=== PATIENT | female | born 1945 | race Caucasian/White ===

== ENCOUNTER 2020-11-17 16:16 | Observation (INO) ==
[2020-11-17] MEDS ORDERED: METOCLOPRAMIDE HCL 5 MG/ML VIAL IV ONE (16:49)
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
[2020-11-17] MEDS ORDERED: MORPHINE SULFATE 2 MG/ML DISP.SYRIN IV ONE (17:06)
[2020-11-17 19:41] LABS: Hematocrit 39.1 % (37.0-47.0); Hemoglobin 12.5 gm/dL (12.5-16.0); Mean Cell Volume 97.8 fl (78-100); Mean Corpuscular Hemoglobin 31.3 pg (27-31); Mean Platelet Volume 9.4 fl (8-12.5); Neutrophil # 11.2 K/mm3 (1.3-6.0); Neutrophil % 81.9 % (42-75.0); Platelet Count 186 K/mm3 (150-450); Red Cell Distribution Width 12.2 % (11.5-14.0); White Blood Count 13.7 K/mm3 (4.0-10.5)
[2020-11-17 19:55] LABS: Albumin * 3.5 gm/dl (3.4-5.0); Anion Gap 11.2 mmol/L (6.8-13.8); BUN/Creatinine Ratio 11.2 (9.0-21.6); Bilirubin, Total 0.9 mg/dL (0.0-1.1); Ca. Corrected For Albumin 8.9 mg/dL (8.4-10.2); Calcium * 8.8 mg/dL (7.9-10.9); Carbon Dioxide 29.1 mmol/L (24-32.6); Potassium 4.3 mmol/L (3.4-4.6); Total Protein 7.1 gm/dL (6.2-8.2)
[2020-11-17] MEDS ORDERED: MORPHINE SULFATE 2 MG/ML DISP.SYRIN ONE (20:02)
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
[2020-11-17] MEDS ORDERED: busPIRone HCL 5 MG TABLET PO SCH (21:30)
[2020-11-17] MEDS: busPIRone HCL 5 MG TABLET PO SCH (23:25)
[2020-11-18] MEDS: oxyCODONE HCL 5 MG TABLET PO PRN ×4 (02:19→21:22)
[2020-11-18] MEDS ORDERED: LEVOTHYROXINE SODIUM 50 MCG TABLET PO SCH ×2 (07:00→21:00)
[2020-11-18 07:44] LABS: Anion Gap 8.8 mmol/L (6.8-13.8); BUN/Creatinine Ratio 10.3 (9.0-21.6); Calcium * 8.4 mg/dL (7.9-10.9); Carbon Dioxide 30.3 mmol/L (24-32.6); Estimated Creat Clear 42.4; Potassium 4.1 mmol/L (3.4-4.6)
[2020-11-18] MEDS: busPIRone HCL 5 MG TABLET PO SCH ×2 (07:59→21:23)
[2020-11-18] MEDS: PANTOPRAZOLE SODIUM 20 MG TABLET.DR PO SCH (07:59)
[2020-11-18] MEDS: NADOLOL 40 MG TABLET PO SCH (07:59)
[2020-11-18] MEDS ORDERED: CITALOPRAM HYDROBROMIDE 20 MG TABLET PO SCH ×2 (09:00→21:00)
[2020-11-18] MEDS ORDERED: busPIRone HCL 5 MG TABLET PO SCH (09:00)
[2020-11-18] MEDS ORDERED: ROSUVASTATIN CALCIUM 10 MG TABLET PO SCH ×3 (09:00→21:00)
[2020-11-18] MEDS ORDERED: ONDANSETRON 4 MG TAB.RAPDIS PO PRN (10:30)
[2020-11-18] MEDS ORDERED: ONDANSETRON 4 MG TAB.RAPDIS ONE (10:33)
--- NOTE | 2020-11-18 13:00 | PN ---
Subjective - Date and Time Seen Date: 11/18/20 Time: 12:59 Subjective Narrative: Pain is well controlled, patient currently sitting in the chair. Still some nausea but better with Zofran. No acute events overnight. She feels well. Working with PT. Objective - Review of Systems Generalized/Overall Review: Reports: No Symptoms Reported EENTM: Reports: No Symptoms Reported Respiratory: Reports: No Symptoms Reported Cardiac: Reports: No Symptoms Reported Abdominal: Reports: No Symptoms Reported Genitourinary Symptoms: Reports: No Symptoms Reported Musculoskeletal Complaints: Reports: Other - hip pain Skin: Reports: No Symptoms Reported Endocrine: Reports: No Symptoms Reported - Vitals Vitals: Last Vital Signs Temp 36.6 C 11/18/20 10:01 Pulse 70 11/18/20 10:01 Resp 18 11/18/20 10:01 BP 106/58 11/18/20 10:01 Pulse Ox 94 11/18/20 10:01 - Abnormal Lab Findings Abnormal Lab Findings: Abnormal Lab Results 11/17/20 11/17/20 11/18/20 Range/Units 19:30 19:30 07:10 WBC 13.7 H (4.0-10.5) K/mm3 RBC 4.00 L (4.2-5.4) M/mm3 MCH 31.3 H (27-31) pg Immature Gran % (Auto) 0.50 H (0.001-0.429) % Immature Gran # (Auto) 0.07 H (0.000-0.0310) K/mm3 Neutrophils % 81.9 H (42-75.0) % Lymphocytes % 12.2 L (20-51) % Neutrophils # 11.2 H (1.3-6.0) K/mm3 Est GFR (Non-Af Amer) 53 L 48 L (60-130) mL/min Random Glucose 133 H (70-110) mg/dL - Exam Constitutional: Present: Alert, Oriented x3, Cooperative, Elderly Respiratory: Present: lungs clear, normal breath sounds Cardiovascular/Chest: Present: regular rate, rhythm, systolic murmur - 2/6 Abdomen: Present: soft, nontender, nondistended Extremity: Present: other - pelvic pain Skin Exam: Present: normal color, warm/dry Appearance: Present: appropriate appearance, appropriate insight Eye contact: Present: cooperative, good eye contact Thoughts: Present: normal thought pattern, normal mood /affect Assessment/Plan Plan Narrative: Pain is well controlled currently and she feels well. She is tolerating the oral pain meds, some nausea. Zofran is ordered for this and she does well with it. Completing therapy as tolerated. Likely discharge tomorrow to SNF. Continue current tx plan. Vitals are stable and no acute events overnight. Nurse to call with any questions or concerns. - Problems/Diagnosis (1) Fracture of multiple pubic rami Problem: Acute Qualifiers: Encounter type: initial encounter Fracture type: closed Laterality: left Qualified Code(s): S32.592A - Other specified fracture of left pubis, initial encounter for closed fracture (2) Hypertension Problem: Chronic Qualifiers: Hypertension type: essential hypertension Qualified Code(s): I10 - Essential (primary) hypertension (3) Hypercholesterolemia Problem: Chronic (4) Gastroesophageal reflux Problem: Chronic Qualifiers: Esophagitis presence: without esophagitis Qualified Code(s): K21.9 - Gastro-esophageal reflux disease without esophagitis (5) Anxiety Problem: Chronic
[2020-11-18] MEDS ORDERED: CITALOPRAM HYDROBROMIDE 10 MG TABLET PO SCH (21:00)
[2020-11-19] MEDS: busPIRone HCL 5 MG TABLET PO SCH (08:04)
[2020-11-19] MEDS: NADOLOL 40 MG TABLET PO SCH (08:04)
[2020-11-19] MEDS: PANTOPRAZOLE SODIUM 20 MG TABLET.DR PO SCH (08:04)
[2020-11-19] MEDS: oxyCODONE HCL 5 MG TABLET PO PRN ×2 (08:04→12:40)
--- NOTE | 2020-11-19 10:21 | DS ---
(1) Fracture of multiple pubic rami Problem: Acute Qualifiers: Encounter type: initial encounter Fracture type: closed Laterality: left Qualified Code(s): S32.592A - Other specified fracture of left pubis, initial encounter for closed fracture (2) Hypertension Problem: Chronic Qualifiers: Hypertension type: essential hypertension Qualified Code(s): I10 - Essential (primary) hypertension (3) Hypercholesterolemia Problem: Chronic (4) Gastroesophageal reflux Problem: Chronic Qualifiers: Esophagitis presence: without esophagitis Qualified Code(s): K21.9 - Gastro-esophageal reflux disease without esophagitis (5) Anxiety Problem: Chronic Date of Discharge:: 11/19/20 Hospital Course: 75-year-old female with history of hypertension, hyperlipidemia, hypothyroidism and anxiety presented to the hospital following ground-level fall which resulted in left pubic rami fracture as well as nondisplaced sacral segment fractures. Patient is been seen by physical therapy and is tolerating it well. Pain control has been reached with oral pain medicine which she will be discharged home on. Her vital signs been stable and she been afebrile while here. Patient will follow-up with orthopedics in 1 week, recommend 5 with her PCP in 1 week as well. No changes to her chronic medications other than adding oxycodone for pain relief to be taken every 6 hours as needed. Her pain should continue to improve on a daily basis. She will be discharged back to [facility] with home health services including physical therapy and prison. Patient is homebound at this time due to her pubic fractures and requires physical therapy in order to help her with her ambulation, strengthening, gait stability, and performing ADLs. She is in need of prison to help manage her medications and monitoring of her healing process. The need for home health care skilled services is directly related to the time spent [id number] with this patient. 45 minutes upon discharge including time spent with patient, completing discharge summary, reconciled her medications. Procedures Performed: none Results and Findings: Lab Pending Results 11/17/20 19:12: SARS-CoV-2 (PCR) Not detected 11/17/20 19:30: WBC 13.7 H, RBC 4.00 L, Hgb 12.5, Hct 39.1, MCV 97.8, MCH 31.3 H, MCHC 32.0, RDW 12.2, Plt Count 186, MPV 9.4, Immature Gran % (Auto) 0.50 H, Immature Gran # (Auto) 0.07 H, Neutrophils % 81.9 H, Lymphocytes % 12.2 L, Monocytes % 5.2, Eosinophils % 0.1, Basophils % 0.1, Nucleated RBC % 0.0, Neutrophils # 11.2 H, Lymphocytes # 1.66, Monocytes # 0.7, Eosinophils # 0.0, Absolute Basophils 0.0 11/17/20 19:30: Sodium 139, Plasma Sodium 140, Potassium 4.3, Chloride 103, Carbon Dioxide 29.1, Anion Gap 11.2, BUN 12, Creatinine 1.07, Est GFR (Non-Af Amer) 53 L, BUN/Creatinine Ratio 11.2, Random Glucose 133 H, Calcium 8.8, Calcium Adj for Albumin 8.9, Total Bilirubin 0.9, AST 29, ALT 30, Alkaline Phosphatase 64, Total Protein 7.1, Albumin 3.5 11/18/20 07:10: Sodium 137, Plasma Sodium 137, Potassium 4.1, Chloride 102, Carbon Dioxide 30.3, Anion Gap 8.8, BUN 12, Creatinine 1.16, Est GFR (Non-Af Amer) 48 L, BUN/Creatinine Ratio 10.3, Random Glucose 107, Calcium 8.4 Discharge Location: [facility] Disposition: [facility] Health Agency: [facility] Condition: Stable Discharge Activity: Activity as tolerated Discharge Diet: General/regular food Referrals: Margot Kidd MD [Primary Care Provider] - One Week Additional Patient Instructions (free text): Plan is to discharge to [facility] with [facility] to see her there. Please fax [facility] as well as [facility] and call report. Prescriptions (Any new or edited meds): oxyCODONE HCL [Oxycodone] 5 mg PO Q4H PRN #60 tab PRN Reason: Pain Transmission Status: Received by [facility] #[id number] Complete Home Medications List: Complete Home Medication List: Ascorbic Acid [Vitamin C] 100 mg PO DAILY 11/17/20 Atorvastatin Calcium [Lipitor] 20 mg PO HS 11/17/20 Buspirone HCl 15 mg PO BID 11/17/20 Citalopram Hydrobromide [Citalopram HBr] 10 mg PO HS 11/17/20 Levothyroxine Sodium [Synthroid] 50 mcg PO DAILY 11/17/20 Nadolol [Corgard] 40 mg PO DAILY 11/17/20 Omeprazole 20 mg PO DAILY 11/17/20 Ubidecarenone [Co Q-10] 100 mg PO DAILY 11/17/20 oxyCODONE HCL [Oxycodone] 5 mg PO Q4H PRN #60 tab 11/19/20
[2020-11-19 12:29] VITALS: BP 103/52
== END 2020-11-19 12:42 | disposition home health service (06) ==
LOC: ER 16:16 → MS 16:16
PROVIDERS: ADMIT Family Medicine; ATTEND Family Medicine